=== PATIENT | female | born 1940 | race Caucasian/White ===

== ENCOUNTER 2018-05-26 19:40 | Inpatient (IN) | payer MEDICARE, OTHER ==
--- NOTE | 2018-05-26 19:58 | ED Physician Documentation ---
General Adult - HISTORIAN Historian: patient, paramedics, other ([facility] and [facility] records) - HPI Stated Complaint: passing out Chief Complaint: General Adult Additional Information: Right THR 05/21/18 at [facility], after a fall. On xarelto and 81 mg asa. Sat on edge of bed and passed out twice yesterday and once today. HGB today 6.4. Feels fine otherwise. HX HTN, superficial blood clots in her legs No other modifying factors or associated signs. - ROS CONST: no problems - PAST HX Past History: hypertension Surgeries/Procedures: BTL, hysterectomy, other (R THR) Allergies/Adverse Reactions: Allergies Allergy/AdvReac Type Severity Reaction Status Date / Time Penicillins Allergy Rash Verified 05/26/18 20:01 morphine AdvReac Hallucinati Verified 05/26/18 20:01 ons - SOCIAL HX Smoking History: non-smoker - FAMILY HX Family History: No - REVIEWED ASSESSMENTS Nursing Assessment Reviewed: Yes Vitals Reviewed: Yes Progress - Progress Progress: 2034, pt discussed with Dr. Florentino, [facility] orthopedics. OK to keep pt here for transfusion. 2055, admit to Dr. Castaneda General Adult Physical Exam - PHYSICAL EXAM GENERAL APPEARANCE: temp 99.3 (while lying down) EENT: eye inspection normal, ENT inspection normal NECK: normal inspection, supple RESPIRATORY: breath sounds normal CVS: reg rate & rhythm, heart sounds normal, no murmur ABDOMEN: soft, normal bowel sounds, no distension, non-tender RECTAL: normal rectal tone, other (guaiac negative) BACK: no CVA tenderness SKIN: warm/dry, normal color (bruising L forearm,) EXTREMITIES: normal range of motion (Except right hip not tested. There is a 15x20 cm hematoma along and distal to right hip op site. Quite firm. Minimal serous drainage on dressing. Sutures intact. ), no evidence of injury, no edema, other ([place] DP's 2+) NEURO: CN's nml as tested, motor nml, sensation nml, cognition normal Discharge Clincal Impression: Anemia Qualifiers: Anemia type: other cause Other causes of anemia: other cause, not classified Qualified Code(s): D64.89 - Other specified anemias Referrals: Hank Espinoza MD [Primary Care Provider] - 2 Days Condition: Fair Disposition: ADMITTED INPATIENT Decision to Admit: [id number] Decision Time: 20:56
[2018-05-26] MEDS ORDERED: 0.9 % SODIUM CHLORIDE 1,000 ML IV SCH (22:30)
[2018-05-26 22:40] LABS: BASOPHILS % 0.3 (0.0-1.5); EOSINOPHILS % 2.6 % (0.0-6.8); MEAN CORPUSCULAR VOLUME 107.9 fl (80.0-100.0); MONOCYTES % 5.8 % (0.0-11.0); NEUTROPHILS # 6.6 # k/uL (1.4-7.7)
[2018-05-26 22:56] LABS: eGFR (African) > 60; eGFR (Non-African) > 60
[2018-05-26 22:58] LABS: MEAN CORPUSCULAR HEMOGLOBIN 36.3 pg (28.0-34.0)
[2018-05-27] MEDS ORDERED: 0.9 % SODIUM CHLORIDE 100 ML IV ONE ×2 (01:15→05:39)
[2018-05-27] MEDS ORDERED: 0.9 % SODIUM CHLORIDE 1,000 ML IV SCH (02:47)
[2018-05-27 05:03] VITALS: BMI 22.0
--- NOTE | 2018-05-27 06:27 | History and Physical Report ---
History of Present Illnes - History of Present Illness Reason for Visit: Anemia History of Present Illness: Patient underwent a R THR after a fall with fracture on 05-21-18. She was sent to [facility] for rehab. She had 2 episodes of syncope 2 days ago and one yesterday. Lab testing showed Hgb of 6.4. She was evaluated in the ER and found to have mild tachycardia but stable BP. Large hematoma noted over R hip. She has been on xarelto and ASA since discharge. Hgb on d/c was 10.6. - Past Medical History Cardiac: HTN - Past Surgical History Past Surgical History: Total Hip Replacement (R), Other (Lumbar compression fx 12/07 - DEXA "normal") - Past Family History Mother Family History: (99 yo - hip fx) Father Family History: CAD, Brother 1 Family History: CAD - Past Social History Smoke: No Alcohol: None Drugs: None Lives: With Family () Domestic Violence: Negative - Health Maintenance Health Maintenance: denies: Influenza Vaccine (refuses), Pneumococcal Vaccine (refuses), Colonoscopy (refuses) Influenza Vaccine: No Pneumonia Vaccine: No Resuscitation Status: Resusciation Status Resuscitation Status Full Code Review of Systems - Review of Systems Constitutional: Weakness. negative: Fever Eyes: negative: pain ENT: negative: Ear Pain, Nose Congestion Respiratory: negative: Cough, Shortness of Breath Cardiovascular: negative: Chest Pain Gastrointestinal: Constipation. negative: Nausea, Vomiting, Abdominal Pain Genitourinary: negative: Dysuria Musculoskeletal: Leg Pain (minimal) Skin: Bruising. negative: Rash Neurological: Weakness - Medications/Allergies Allergies/Adverse Reactions: Allergies Allergy/AdvReac Type Severity Reaction Status Date / Time Penicillins Allergy Rash Verified 05/26/18 20:01 morphine AdvReac Hallucinati Verified 05/26/18 20:01 ons Home Medications: Home Medications Aspirin 81 mg PO DAILY 05/26/18 Calcium Carbonate [Calcium] 600 mg PO TID 05/26/18 Cholecalciferol (Vitamin D3) [Vitamin D3] 1,000 unit PO DAILY 05/26/18 Ergocalciferol (Vitamin D2) [Vitamin D2] 50,000 unit PO WEEK 05/26/18 Gabapentin 300 mg PO TID 05/26/18 Ibuprofen 800 mg PO Q8 PRN 05/26/18 Polyethylene Glycol 3350 [Miralax] 17 gm PO 1100 05/26/18 Ramipril [Altace] 10 mg PO DAILY 05/26/18 Rivaroxaban [Xarelto] 10 mg PO HS 05/26/18 Sennosides [Senna] 8.6 mg PO DAILY 05/26/18 Current Inpatient Medications: Current Inpatient Medications Sodium Chloride (Normal Saline) 1,000 mls @ 100 mls/hr IV Q10H VELVET Exam - Exam Vital Signs: Vital Signs (72 hours) 05/26/18 05/26/18 05/27/18 19:40 22:02 02:02 Temperature 99.3 F 97.2 F L 98 F Pulse Rate [ 109 H 98 H 96 H Pulse ox] Respiratory 18 16 18 Rate Blood Pressure 124/78 122/61 141/70 [Right Arm] O2 Sat by Pulse 96 95 94 Oximetry 05/27/18 05/27/18 05/27/18 02:30 03:00 04:10 Temperature 97.4 F L 97.4 F L 97.0 F L Pulse Rate [ 92 H 88 90 Pulse ox] Respiratory 18 18 18 Rate Blood Pressure 131/68 116/72 130/67 [Right Arm] O2 Sat by Pulse 96 94 96 Oximetry General: Alert, Oriented to Person, Oriented to Place, Oriented to Time, Cooperative, No acute distress HEENT: Atraumatic, PERRLA, EOMI, Mouth Mucous membr. moist/[place] Neck: Normal Range of Motion Lungs: Clear to auscultation, Normal air movement, Speaks full Sentences Cardiovascular: Regular rate Abdomen: Normal bowel sounds, Soft Integumentary: Other Extremities: Normal pulses, Other (Incision R hip intact. No drainage. Large hematoma.). No: No edema Neurological: Generalized Weakness Psych/Mental Status: Mental status NL, Mood NL, Appropriate Affect, Intact Judgment - Laboratory Results Laboratory Results: Laboratory Results 05/26/18 05/26/18 22:25 22:25 WBC 11.40 RBC 1.65 L Hgb 6.0 L* Hct 17.8 L MCV 107.9 H MCH 36.3 H MCHC 0.0 L RDW 18.2 H Plt Count 426 H Neut % (Auto) 57.6 Lymph % (Auto) 32.2 [place] % (Auto) 5.8 Eos % (Auto) 2.6 Baso % (Auto) 0.3 Neut # (Auto) 6.6 Lymph # (Auto) 3.7 [place] # (Auto) 0.7 Eos # (Auto) 0.3 Baso # (Auto) 0.0 Reactive Lymphs % 1.5 Reactive Lymphs # 0.2 Sodium 132 L Potassium 3.9 Chloride 100 Carbon Dioxide Adoption Worker BUN 22 H Creatinine 0.60 Estimated Creat Clear 97 Est GFR ( Amer) > 60 Est GFR (Non-Af Amer) > 60 Glucose 119 H Calcium Adoption Worker Total Bilirubin 0.5 AST 37 ALT 56 Alkaline Phosphatase 170 H Total Protein 5.4 L Albumin 2.5 L Assessment/Plan - Assessment/Plan (1) Hip fx Status: Acute Current Visit: Yes Qualifiers: Encounter type: sequela Fracture type: closed Laterality: right Qualified Code(s): S72.001S - Fracture of unspecified part of neck of right femur, sequela Plan: Will continue abductor pillow and R hip precautions. Discussion with orthopedics regarding DVT prevention since she has had extension bruising enough to drop her hemoglobin on Xarelto and ASA. Will place JURGEN hose. I discussed with the orthopedic resident numerical control operator at [facility], who simply read me Dr. Tinajero's note - he recommended Lovenox 60 qd, Eliquis 2.5 mg bid, or Xarelto 10 mg daily. For today we are hold all anticoagulation. When HGB stable, will likely try eliquis to see if she tolerates it better. (2) HTN (hypertension) Status: Chronic Current Visit: No Qualifiers: Hypertension type: essential hypertension Qualified Code(s): I10 - Essential (primary) hypertension Plan: Stable. Use lisinopril as her ramipril is NF. (3) Near syncope Status: Acute Current Visit: Yes Plan: Most likely due to anemia. Watch closely. (4) Anemia Status: Acute Current Visit: Yes Qualifiers: Anemia type: other cause Other causes of anemia: other cause, not classified Qualified Code(s): D64.89 - Other specified anemias Plan: Anemia due to bruising around R hip fx (s/p repair), most likely exaggerated by Xarelto and ASA. Both meds being held now. Admit patient for IVF and transfusion of 2 units of PRBC's. VTE Assessment - RISK FACTOR SCORE VTE RISK FACTOR SCORES: AGE OVER 60 YEARS, HIP, PELVIS, OR LEG FX - RISK VTE MODERATE RISK: SCORE OF 2 (RISK PROXIMAL DVT 2-4%) PROPHYAXIS NEEDED
[2018-05-27] MEDS ORDERED: LISINOPRIL 5 MG TABLET PO ONE (06:43)
[2018-05-27] MEDS ORDERED: CHOLECALCIFEROL (VIT D3) 1,000 UNIT TABLET PO ONE (08:23)
[2018-05-27] MEDS: GABAPENTIN 300 MG CAPSULE PO SCH ×2 (08:27→13:17)
[2018-05-27] MEDS ORDERED: CALCIUM/VIT D 500MG/200IU TABLET PO SCH (09:00)
[2018-05-27] MEDS ORDERED: RAMIPRIL 10 MG PO SCH (09:00)
[2018-05-27] MEDS ORDERED: CALCIUM CARBONATE 600 MG PO SCH (09:00)
[2018-05-27] MEDS ORDERED: CHOLECALCIFEROL 1000 UNIT PO SCH (09:00)
[2018-05-27] MEDS ORDERED: SENNOSIDES 8.6 MG TABLET PO SCH (09:00)
[2018-05-27 09:26] LABS: MEAN CORPUSCULAR HEMOGLOBIN 34.9 pg (28.0-34.0); MEAN CORPUSCULAR VOLUME 106.9 fl (80.0-100.0)
[2018-05-27] MEDS ORDERED: POLYETHYLENE GLYCOL 3350 17 GM POWD.PACK PO SCH (11:00)
--- NOTE | 2018-05-27 12:18 | Discharge Summary ---
Discharge Summary - Discharge Sumary History of Present Illness: Patient underwent a R THR after a fall with fracture on 05-21-18. She was sent to [facility] for rehab. She had 2 episodes of syncope 2 days ago and one yesterday. Lab testing showed Hgb of 6.4. She was evaluated in the ER and found to have mild tachycardia but stable BP. Large hematoma noted over R hip. She has been on xarelto and ASA since discharge. Hgb on d/c was 10.6. Condition at Discharge: Stable Home Medications: Ambulatory Orders Medication Instructions Recorded Calcium Carbonate [Calcium] 600 mg PO TID 05/26/18 Cholecalciferol (Vitamin D3) 1,000 unit PO DAILY 05/26/18 [Vitamin D3] Ergocalciferol (Vitamin D2) 50,000 unit PO WEEK 05/26/18 [Vitamin D-2] Gabapentin 300 mg PO TID 05/26/18 Ibuprofen 800 mg PO Q8 PRN 05/26/18 Polyethylene Glycol 3350 [Miralax] 17 gm PO 1100 05/26/18 Ramipril [Altace] 10 mg PO DAILY 05/26/18 Sennosides [Senna] 8.6 mg PO DAILY 05/26/18 Aspirin EC [Ecotrin] 325 mg PO BID #60 tablet. 05/27/18 Consultations this Visit: None Procedures this Visit: None Allergies/Adverse Reactions: Allergies Allergy/AdvReac Type Severity Reaction Status Date / Time Penicillins Allergy Rash Verified 05/26/18 20:01 morphine AdvReac Hallucinati Verified 05/26/18 20:01 ons Discharge Summary: Patient was admitted with HGB of 6.0 - a 4 point drop from her preop level. Examination showed blood loss was into the L thigh. This hematoma remained stable during her stay. She was transfused 2 units PRBC's and tolerated it well. An hour later HGB was at 9.5. She was transferred back to [facility] to continue therapy. All lightheadedness had resolved. Plan to check HGB on . Xarelto was stopped. ASA 325 mg bid with JURGEN hose was started. Hospital Course: Discharge Dx: anemia. L thigh hematoma. L hip fx - s/p repair. HTN. Disposition - [facility]
[2018-05-27 13:19] VITALS: BP 135/75
[2018-05-28] MEDS ORDERED: CHOLECALCIFEROL (VIT D3) 1,000 UNIT TABLET PO SCH (09:00)
[2018-05-29] MEDS ORDERED: ERGOCALCIFEROL (VITAMIN D2) 50,000 UNIT CAPSULE PO SCH (09:00)
== END 2018-05-27 15:15 | DRG 812 ==
LOC: ED 19:40 → SOUTH 21:41
PROVIDERS: ADMIT Family Medicine; ATTEND Family Medicine
DX: D64.89 Other specified anemias (principal); S72.001S Fracture of unspecified part of neck of right femur, sequela; S70.12XA Contusion of left thigh, initial encounter; I10 Essential (primary) hypertension; X58.XXXA Exposure to other specified factors, initial encounter; Y93.9 Activity, unspecified; Y92.9 Unspecified place or not applicable
CPT/HCPCS: 36415; 80051; 80053; 85025; 85027; 86920; J7030; 96365; 96366; P9040